=== PATIENT | female | born 1985 | race Caucasian/White ===

== ENCOUNTER 2016-08-28 12:35 | Emergency (ER) ==
[2016-08-28 12:40] VITALS: BP 134/96
[2016-08-28] MEDS ORDERED: NS 1,000 ML IV ONE (12:51)
[2016-08-28] MEDS ORDERED: ZOFRAN IV ONE (12:51)
[2016-08-28] MEDS ORDERED: ATIVAN IV ONE (13:10)
--- NOTE | 2016-08-28 13:10 | PROVIDER DOCUMENTATION ---
HPI-Abdominal Pain/GI Problem - General Chief Complaint: Nausea/Vomiting Stated Complaint: VOMITING Time Seen by Provider: 08/28/16 12:45 Source: patient Allergies/Adverse Reactions: Patient Allergies Allergy/AdvReac Type Severity Reaction Status Date / Time acetaminophen [From Vicodin] AdvReac NAUSEA/VOMI Verified 08/28/16 12:40 TING hydrocodone bitartrate * AdvReac NAUSEA/VOMI Verified 08/28/16 12:40 [From Vicodin] TING Sulfa (Sulfonamide AdvReac NAUSEA/VOMI Verified 08/28/16 12:40 Antibiotics) TING Home Medications: Home Medication List Medication Instructions Recorded Confirmed Last Taken Type Dicyclomine [Bentyl] 10 mg PO TID AC #30 capsule 08/28/16 Unknown Rx Esomeprazole [Nexium] 40 mg PO DAILY 08/28/16 08/28/16 08/27/16 08:30 History 40 MG Metoclopramide HCl [Reglan] 5 mg PO BID PRN #15 tablet 08/28/16 Unknown Rx Omeprazole [Prilosec] 40 mg PO BID #60 capsule. 08/28/16 Unknown Rx - History of Present Illness-ABD Nature of Presenting Problems: 31 y/o WF c/o 3-4 months of abdominal pain, nausea and vomiting. States she has not been able to help down a job becuase she cannot sleep at night. Has zofran and phenergan without relief. Abdominal pain in the epigastric area, no radiation. Denies changes in BM. States it has gotten worse over the last two weeks and she has hit her breaking point. Abdominal Pain Onset Location: reports: epigastric Pain Radiation: reports: no radiation Quality of Pain: reports: aching Onset/Duration: reports: other (3 months ago) Timing: reports: still present, intermittent, getting worse Modifying Factors: worse with: analgesics, antacids (tried Nexium 40 mg for last week without relief), breathing, cold/heat therapy, coughing, defecating, eating, exercise, immobilization, lying down, massage, movement, other medication, palpation, rest, urinating, vomiting Associated Symptoms: reports: anxiety, fatigue, fever/chills, nausea, vomiting. denies: arm pain, back/neck pain, chest pain, constipation, cough, diaphoresis , diarrhea, dizziness, EENT symptoms, genitourinary problems, headaches, heartburn, joint pain, loss of appetite, malaise, muscle aches, sinus congestion /drainage, rash, seizure, shortness of breath, sensory/motor loss, pain with inspiration, swelling/mass in abdomen, syncope, weakness, trouble walking Review of Systems - Adult - REVIEW OF SYSTEMS - ADULT Constitutional: reports: see HPI, chills, fatique. denies: fever Eyes: reports: no symptoms reported. denies: decreased vision, blurred vision, double vision, eye pain Ears, Nose, Mouth & Throat: reports: no symptoms reported. denies: ear pain, nose pain, throat pain Cardiovascular: reports: no symptoms reported. denies: chest pain, irregular heart rate, palpitations Respiratory: reports: no symptoms reported. denies: cough, shortness of breath , wheezing Gastrointestinal: reports: see HPI, abdominal pain, nausea, poor appetite, vomiting. denies: diarrhea Genitourinary: reports: no symptoms reported. denies: dysuria, discharge, frequency, incontinence Musculoskeletal: reports: no symptoms reported. denies: bone pain, back pain, muscle aches Integumentary: reports: no symptoms reported. denies: rash Neurological: reports: no symptoms reported. denies: dizziness/vertigo, headache/migraines Psychiatric: reports: no symptoms reported Endocrine: reports: no symptoms reported Hematologic/Lymphatic: reports: no symptoms reported Allergic/Immunologic: reports: no symptoms reported All Other Systems: Reviewed and Negative Past History - Adult - PAST MEDICAL HISTORY-ADULT Review of Records: reports: Old Records Reviewed, Nursing Assessment Review, Medications Reviewed Major Childhood Illnesses: reports: denies history Cardiovascular: reports: denies history Respiratory: reports: denies history Gastrointestinal: reports: denies history Obstetrical/Gynecological: reports: denies history Genitourinary: reports: denies history Musculoskeletal: reports: denies history Neurological: reports: denies history Endocrine/Immune: reports: denies history Other Conditions: reports: denies history - PRIOR SURGERIES/PROCEDURES Surgical/Procedure History: reports: other (lymph node removed from neck ) - IMMUNIZATION STATUS Childhood Immunizations: See Nurse Assessment Flu Vaccine: See Nurse Assessment - FAMILY HISTORY Family History: reviewed, not pertinent Physical Exam-General - PHYSICAL EXAM-ADULT Initial Vital Signs Reviewed: Yes - CONSTITUTIONAL General Appearance: appears well, alert, mild distress, obese, anxious - EYES Eyes: PERRL/EOMI, pink conjunctivae - HEAD, EARS, NOSE, MOUTH & THROAT HENMT: normocephalic/atraumatic, moist mucous membranes - NECK Neck: non-tender, full range of motion - RESPIRATORY Respiratory: chest non-tender, lungs clear, normal breath sounds, no pleuratic chest pain, no respiratory distress, no accessory muscle use. negative: respiratory distress, decreased breath sounds, accessory muscle use, crackles, rales, rhonchi, wheezing - CARDIOVASCULAR Cardiovascular: normal peripheral pulses, regular rate, rhythm - GASTROINTESTINAL (ABDOMEN) Abdominal Exam: normal bowel sounds, non tender, soft, no organomegaly, no pulsatile mass, other (obese, difficult to evaluate). negative: abdominal bruit , abnormal bowel sounds, distended, guarding, rigid, rebound, tenderness - MUSCULOSKELETAL Extremity: normal gait - SKIN Integumentary: normal color, normal turgor, warm/dry - NEUROLOGIC Neurologic: grossly normal, no motor/sensory deficits - PSYCHIATRIC Psych/Mental Status: normal mood/affect, normal thought content, normal thought process, oriented x 3 Progress - PLAN OF CARE/RESULTS Progress/Plan/Lab Results: Vital Signs Temp Pulse Resp BP Pulse Ox 08/28/16 12:37 98.1 F 97 H 16 134/96 98 acetaminophen [From Vicodin] Adverse Reaction (Verified 08/28/16 12:40) NAUSEA/VOMITING hydrocodone bitartrate * [From Vicodin] Adverse Reaction (Verified 08/28/16 12: 40) NAUSEA/VOMITING Sulfa (Sulfonamide Antibiotics) Adverse Reaction (Verified 08/28/16 12:40) NAUSEA/VOMITING Esomeprazole [Nexium] 40 mg PO DAILY 08/28/16 Dietary Diet NPO Start SunAug 28 1251 Laboratory 08/28/16 08/28/16 08/28/16 13:07 13:07 13:07 WBC 9.93 RBC 5.01 Hgb 14.9 Hct 44.3 MCV 88.4 MCH 29.7 MCHC 33.6 RDW Std Deviation 12.4 Plt Count 322 MPV 9.9 Immature Gran % (Auto) 0.2 Neut % (Auto) 66.4 Lymph % (Auto) 23.2 [place] % (Auto) 8.1 Eos % (Auto) 1.9 Baso % (Auto) 0.2 Immature Gran # (Auto) 0.02 Neut # (Auto) 6.60 H Lymph # (Auto) 2.30 [place] # (Auto) 0.80 H Eos # (Auto) 0.19 Baso # (Auto) 0.02 Sodium Potassium Chloride Carbon Dioxide Anion Gap BUN Creatinine Estimated GFR/1.73 m2 BUN/Creatinine Ratio Glucose Calculated Osmolality Calcium Total Bilirubin AST ALT Alkaline Phosphatase Total Protein Albumin Globulin Albumin/Globulin Ratio Amylase Lipase Urine Source CLEAN CATCH Urine Color YELLOW Urine Clarity CLEAR Urine pH 8.0 Ur Specific [place] 1.015 Urine Protein TRACE A Urine Ketones NEGATIVE Urine Blood NEGATIVE Urine Nitrite NEGATIVE Urine Bilirubin NEGATIVE Urine Urobilinogen NORMAL Urine Microscopic RBC Not Reportable Urine WBC TRACE A Urine Microscopic WBC <10 Ur Epithelial Cells <10 Urine Bacteria 2+ Urine Glucose NEGATIVE Urine Test NEGATIVE 08/28/16 13:07 WBC RBC Hgb Hct MCV MCH MCHC RDW Std Deviation Plt Count MPV Immature Gran % (Auto) Neut % (Auto) Lymph % (Auto) [place] % (Auto) Eos % (Auto) Baso % (Auto) Immature Gran # (Auto) Neut # (Auto) Lymph # (Auto) [place] # (Auto) Eos # (Auto) Baso # (Auto) Sodium 137 Potassium 3.6 Chloride 102 Carbon Dioxide 24 L Anion Gap 11 BUN 8 Creatinine 0.6 Estimated GFR/1.73 m2 > 60 BUN/Creatinine Ratio 13 Glucose 89 Calculated Osmolality 272 Calcium 9.1 Total Bilirubin 0.30 AST 22 ALT 24 Alkaline Phosphatase 84 Total Protein 7.3 Albumin 4.0 Globulin 3.0 Albumin/Globulin Ratio 1.0 Amylase 57 Lipase 31 Urine Source Urine Color Urine Clarity Urine pH Ur Specific [place] Urine Protein Urine Ketones Urine Blood Urine Nitrite Urine Bilirubin Urine Urobilinogen Urine Microscopic RBC Urine WBC Urine Microscopic WBC Ur Epithelial Cells Urine Bacteria Urine Glucose Urine Test Orders Category Date Time Status ED: Urine Bedside ORDERED Care 08/28/16 12:51 Active Saline Loc DIRECTED Care 08/28/16 12:51 Active NPO Diet 08/28/16 12:51 Active AMYLASE [CHEM] Stat Lab 08/28/16 13:07 Completed CBC WITH ELECTRONIC DIFF [HEME] Stat Lab 08/28/16 13:07 Completed COMPREHENSIVE METABOLIC PANEL [CHEM] Stat Lab 08/28/16 13:07 Completed LIPASE [CHEM] Stat Lab 08/28/16 13:07 Completed TEST-URINE [PREG] Stat Lab 08/28/16 13:[address] W/POSS RFLX CULT [URINALYSIS] Stat Lab 08/28/16 13:07 Completed URINE CULTURE [RM] Routine Lab 08/28/16 14:00 Ordered 0.9% Sodium Chloride Inj [Ns] 1,000 ml Med 08/28/16 12:51 Discontinued IV 999 mls/hr Lorazepam [Ativan] Med 08/28/16 13:10 Discontinued 1 mg IV NOW ONE Ondansetron [Zofran] Med 08/28/16 12:51 Discontinued 4 mg IV NOW ONE Departure - Departure Time of Disposition Order: 14:07 DIAGNOSIS: Chronic abdominal pain Nausea and vomiting Qualifiers: Vomiting type: unspecified Vomiting Intractability: non-intractable Qualified Code(s): R11.2 - Nausea with vomiting, unspecified Disposition: HOME 01 Certified Medical Emergency: Emergent Condition: Stable Additional Instructions: Follow up with Dr. Santacruz, GI [facility] ED Follow Up Instructions: You have been treated by a care provider in the Emergency Department. These instructions are being provided to you so you can have an understanding of how to care for yourself upon discharge. Upon discharge from the Emergency Department, you are responsible for making arrangements for follow-up care by a physician of your choice. Take all prescribed medications as directed. Return to the Emergency Department immediately for any new or worsening symptoms. You may call the Physician Referral phone number at [phone] to obtain a list of Physicians who are taking new patients. Prescriptions: Dicyclomine [Bentyl] 10 mg PO TID AC #30 capsule Omeprazole [Prilosec] 40 mg PO BID #60 capsule. Metoclopramide HCl [Reglan] 5 mg PO BID PRN #15 tablet PRN Reason: Vomiting Referrals: None,PCP [Primary Care Provider] - [facility] [NON-STAFF] - Ruma Santacruz MD [STAFF PHYSICIAN] - Attestation - Physician/ CHELLE Attestation Patient care was provided by Advanced Practice Provider:: Yes Advanced Practice Provider:: Dotty Sosa Advanced Practice Provider documentation review:: The Mid-level provider documentation, treatment plan and medical decision making was reviewed by the physician who agrees with all treatment and medical decision making by the MLP.
[2016-08-28 13:17] LABS: MANUAL DIFF NEEDED? NO; URINE SOURCE CLEAN CATCH
[2016-08-28 13:32] LABS: BASO% 0.2 % (0.0-0.8); EOS# 0.19 X1000 (0.0-0.7); EOS% 1.9 % (0.0-10.0); HEMATOCRIT 44.3 % (37.0-47.0); HEMOGLOBIN 14.9 g/dL (12.0-16.0); IMM GRAN# 0.02 X1000 (0.0-0.04); IMM GRAN% 0.2 % (0.0-0.5); LYMPH% 23.2 % (20.5-51.1); MCH 29.7 PG (27-31); MCHC 33.6 g/dL (33-37); MCV 88.4 FL (81-99); MONO% 8.1 % (1.7-9.3); MPV 9.9 FL (7.4-10.4); NEUT% 66.4 % (42.2-75.2); PLT 322 X1000 (130-400); RBC 5.01 XMIL (4.2-5.4)
[2016-08-28 13:55] LABS: BILIRUBIN URINE NEGATIVE (NEGATIVE); BLOOD URINE NEGATIVE (NEGATIVE); CLARITY CLEAR (CLEAR); COLOR YELLOW; GLUCOSE URINE NEGATIVE (NEGATIVE); LEUKOCYTES URINE TRACE (NEGATIVE); NITRITE URINE NEGATIVE (NEGATIVE); PROTEIN URINE TRACE mg/dL (NEGATIVE); SP GRAVITY URINE 1.015; UROBILINOGEN URINE NORMAL
[2016-08-28 14:00] LABS: URINE CULTURE PL NEEDED? YES; URINE EPITHELIAL CELLS <10 /HPF (<10); URINE WBC <10 /HPF (<10)
[2016-08-28 14:01] LABS: AGAP 11; ALKALINE PHOSPHATASE 84 U/L (32-104); AMYLASE 57 U/L (20-200); BUN 8 mg/dL (8-22); CALCIUM 9.1 mg/dL (8.8-10.2); CHLORIDE 102 mmol/L (98-107); COSMO 272; GOT 22 U/L (10-30); GPT 24 U/L (10-36); LIPASE 31 U/L (13-60); POTASSIUM 3.6 mmol/L (3.5-5.1); SODIUM 137 mmol/L (136-145); TCO2 24 mmol/L (25-35); TOTAL PROTEIN 7.3 g/dL (6.3-8.3)
[2016-08-28] MEDS ORDERED: REGLAN IV ONE (14:27)
== END 2016-08-28 14:39 | disposition home or self-care (01) ==
LOC: P.ED 12:35
DX: R10.13 Epigastric pain (principal); G89.29 Other chronic pain; R11.2 Nausea with vomiting, unspecified; R53.83 Other fatigue; R50.9 Fever, unspecified; Z79.899 Other long term (current) drug therapy
CPT/HCPCS: 80053; 81001; 81025; 82150; 83690; 85025; 87088; 96361; 96374; 96375; J2405; J2765; J7030